=== PATIENT | female | born 1950 | race American Indian/Alaskan Native ===

== ENCOUNTER 2016-04-21 11:26 | Outpatient (CLI) | payer OTHER ==
--- NOTE | 2016-04-21 15:02 | Mammography Report ---
BONE DENSITY STUDY: DEFINITIONS: BMD = Bone Mineral Density T-score = BMD related to mean peak bone mass of young adult (mean expressed in Standard Deviation) Z-score = Age matched BMD expressed in SD World Health Organization (WHO) Diagnostic Criteria Normal T-score > -1 SD Osteopenia T-score between -1 and -2.4 SD Osteoporosis T-score -2.5 SD or below FINDINGS: The average L1-L4 BMD is 0.95 with a T. value score of -1.1. The L1 BMD is 0.819 with a T. value score of -1.6. The average left hip BMD is 0.8 70 with a T. value score of -0.6. IMPRESSION: The patient's T-score is diagnostic for osteopenia and average relative risk for fracture. NOTE: BMD is not the only risk factor for fracture; also consider factors such as the patient's age, risk of falling, previous osteoporotic fracture, family history of osteoporotic fractures, current smoker, and low body weight. Hurtado's triangle is a region of interest in femur, predominantly of trabecular bone. It is not a true anatomic site, and [facility] does not recommend its use clinically. RECOMMENDATION: Followup with referring physician.
== END 2016-04-21 11:27 | disposition home or self-care (01) ==
LOC: MAMMO 11:26
PROVIDERS: ATTEND Physician Assistant Surgical
DX: Z13.820 Encounter for screening for osteoporosis (principal); M85.88 Other specified disorders of bone density and structure, other site
CPT/HCPCS: 77080

== ENCOUNTER 2017-04-18 10:32 | Outpatient (CLI) | payer OTHER ==
--- NOTE | 2017-04-18 16:19 | Mammography Report ---
BILATERAL DIGITAL SCREENING MAMMOGRAM with CAD : 04/18/17 10:32:00 CLINICAL: Routine screening. COMPARISON:04/14/16 FINDINGS: The breasts are heterogeneously dense, which may obscure small masses. No mass, architectural distortion or suspicious calcifications. IMPRESSION: No mammographic evidence of malignancy. BI-RADS CATEGORY: 2 -- Benign RECOMMENDATION: Routine mammographic screening in one year. COMMENT: Patient follow-up letters are generated by our [employer] application.
== END 2017-04-18 10:33 | disposition home or self-care (01) ==
LOC: MAMMO 10:32
PROVIDERS: ATTEND Internal Medicine
DX: Z12.31 Encounter for screening mammogram for malignant neoplasm of breast (principal)
CPT/HCPCS: 77067

== ENCOUNTER 2017-08-11 11:03 | Outpatient (CLI) | payer OTHER ==
--- NOTE | 2017-08-11 11:56 | Cat Scan Report ---
CT scan of chest without IV contrast: History: Weight loss, tobacco use disorder. Findings: No endobronchial or mediastinal mass. No mediastinal, hilar or axillary adenopathy. There is a partially calcified nodule identified at right and left apex posteriorly seen on series 3 image 15. There is noncalcified nodule measuring 3 mm in diameter identified right lung series 2 image 31. Bilateral apical scarring is noted. No consolidation or pleural effusion. Visualized upper abdominal viscera appears unremarkable. Impression: Partially calcified nodule right and left apex. Noncalcified 3 mm nodule right lung. Probably granulomas. 6 month followup may be recommended.
== END 2017-08-11 11:04 | disposition home or self-care (01) ==
LOC: CT 11:03
PROVIDERS: ATTEND Internal Medicine
DX: R91.1 Solitary pulmonary nodule (principal); R63.4 Abnormal weight loss; Z72.0 Tobacco use
CPT/HCPCS: 71250